=== PATIENT | female | born 1985 | race Caucasian/White ===

== ENCOUNTER 2016-03-24 02:39 | Inpatient (IN) | payer OTHER ==
[2016-03-24] VITALS (17 sets, daily range): BP systolic 119–138; BP diastolic 57–86
[~2016-03-24] VITALS: Ht 170.2 cm; Wt 79.0 kg
[~2016-03-24 02:39] MED LIST: ACET50TA PO; IBUP80TA PO
[2016-03-24] MEDS ORDERED: LACTATED RINGER'S 1000 ML IV STA (03:21)
[2016-03-24] MEDS ORDERED: LR 1,000 ML IV SCH (03:21)
[2016-03-24] MEDS ORDERED: CLINDAMYCIN 900 MG in APPROPRIATE DILUENT 1 EA IV SCH (03:30)
[2016-03-24 03:44] LABS: MEAN CORPUSCULAR HEMOGLOBIN 33.3 pg (27.0-33.0); MEAN CORPUSCULAR HGB CONC 35.3 g/dl (32.0-36.5); MEAN CORPUSCULAR VOLUME 94.1 fl (80.0-96.0); RED CELL DISTRIBUTION WIDTH 13.9 % (11.5-14.5); WHITE BLOOD COUNT 11.4 K/mm3 (4.0-10.0)
[2016-03-24] MEDS ORDERED: FENTANYL 2MCG/ML ROPIVACAINE 0.2% NACL 250 ML CADD As Ordered ONE (04:42)
[2016-03-24] MEDS ORDERED: EPIDURAL/PCA KEYS XX PRN (05:25)
[2016-03-24] MEDS ORDERED: EPIDURAL COMMENT XX SCH (05:25)
[2016-03-24] MEDS ORDERED: LACTATED RINGER'S 1000 ML IV PRN (05:25)
[2016-03-24] MEDS ORDERED: REFRIGERATOR IV KEYS XX PRN (05:25)
[2016-03-24] MEDS ORDERED: ePHEDrine SULFATE 25 MG/5 ML(5MG/ML) SYRINGE IV PRN (05:25)
[2016-03-24] MEDS ORDERED: ONDANSETRON 4MG/2ML VIAL (J2405) IV PRN (05:25)
[2016-03-24] MEDS ORDERED: FENTANYL/ROPIVACAINE/NACL CADD 250 ML EPIDURAL SCH (05:25)
[2016-03-24] MEDS ORDERED: NALOXONE INJ 0.4 MG/1 ML VIAL (J2310) IV PRN (05:25)
[2016-03-24] MEDS ORDERED: diphenhydrAMINE INJ 50MG/ML VIAL (J1200) IV PRN (05:25)
[2016-03-24] MEDS ORDERED: OXYTOCIN 30 UNITS IN 0.9% NaCl 500ML IV BAG (J2590) As Ordered ONE (06:06)
[2016-03-24] MEDS ORDERED: OXYTOCIN DRIP 30 UNITS in APPROPRIATE DILUENT 1 EA IV SCH (06:42)
[2016-03-24] MEDS ORDERED: METHYLERGONOVINE MALEATE 0.2 MG TAB PO PRN (06:45)
[2016-03-24] MEDS ORDERED: miSOPROStol 200 MCG TAB (S0191) PR ONE (06:45)
[2016-03-24] MEDS ORDERED: MOM 30ML SUSPENSION UDC PO PRN (06:45)
[2016-03-24] MEDS ORDERED: DIBUCAINE 1% OINTMENT 30GM TOP PRN (06:45)
[2016-03-24] MEDS ORDERED: DOCUSATE SODIUM 100 MG CAP PO PRN (06:45)
[2016-03-24] MEDS ORDERED: RHOGAM 300 MCG (1500 IU) INJ (J2790) IM SCH (06:45)
[2016-03-24] MEDS ORDERED: MEASLES,MUMPS,RUBELLA VACCINE INJ (MMR-II) (90707) SC SCH (06:45)
--- NOTE | 2016-03-24 07:58 | HPE ---
DATE OF ADMISSION: 03/24/2016 HISTORY: 30-year-old, 2, para 1-0-0-1, estimated date of delivery 03/22/2016, here at 40 weeks 2 days with reports of spontaneous rupture of membranes, clear fluid, at 0115, followed by onset of mild contractions. Denies bleeding. Fetus is active. Last normal menstrual period 06/16/2015 for expected date of delivery (KEYANA) of 03/22/2016. Sonogram at 8 weeks confirmed date of 03/26/2016. Sought first trimester care. Anatomy scan within normal limits. Appropriate care. OBSTETRICAL HISTORY: In 2012, normal spontaneous vaginal at 38 weeks, viable female, 7 pounds 15 ounces, with a 9 hour labor. ALLERGIES: - LATEX - PENICILLIN MEDICAL/SURGICAL: LASIK. Abnormal Pap, colposcopy and heart murmur. FAMILY HISTORY: Heart disease. SOCIAL HISTORY: . Father of the baby present and supportive. Denies tobacco, alcohol, drugs or abuse. OBJECTIVE: Prepregnancy weight 142, total weight gain 42 pounds. A positive, antibody negative, rubella immune. VDRL, hepatitis B, hepatitis C, HIV, gonorrhea, and chlamydia all negative. Declined genetic screening. 1-hour glucose 119. Group B strep is positive. Sensitivities performed showing clindamycin sensitivity. Vital signs are stable. She is in no apparent distress. Heart rate is regular. Respirations are easy. Abdomen is soft, gravid, longitudinal lie. Uterine contractions 7-8 minutes apart times 60+ seconds. heart 145, moderate variability with accelerations. Clear fluid draining per vagina. Sterile vaginal exam per nursin cm, 60% effaced, -2 station. ASSESSMENT: Multiparous at term. Premature rupture of membranes. Early labor. Category I tracing. PLAN: Admit. The patient plans epidural. Group B Strep prophylaxis ordered. Anticipate normal spontaneous vaginal .
--- NOTE | 2016-03-24 08:27 | DN ---
DATE: 03/24/2016 Spontaneous rupture of membranes, clear fluid, 0115. Onset of regular contractions thereafter. Utilized epidural for coping. Fully dilated 0605 with strong urge to push. Viable female delivered right occiput anterior (FABI) after reduction of loose nuchal cord at 0616. Spontaneous respirations with stimulation. Transitioned on maternal abdomen. Cord doubly clamped and cut. Infant to warmer for suctioning and blow-by Oxygen. Apgars 8 and 9. Placenta Caballero intact with three-vessel cord at 0624. Fundus firmed with massage and IV Pitocin bolus. Misoprostol 1000 mcg WA given for persistent bleeding with good effect. Estimated blood loss 400 mL. Perineum, vagina and cervix inspected. Right labial abrasion and small posterior abrasion reapproximated with interrupted suture of #3-0 Vicryl Rapide. Sharp, sponge and instrument count correct. Infant weight 8 pounds 6 ounces, 3792 grams. Mom and baby doing well.
[2016-03-24] MEDS: PRENATAL VITAMIN TAB PO SCH (09:09)
[2016-03-24] MEDS: IBUPROFEN 800 MG TAB PO PRN ×2 (13:13→17:16)
[2016-03-24] MEDS: ACETAMINOPHEN 500 MG TAB PO PRN (21:15)
[2016-03-25 06:08] VITALS: BP 132/68
[2016-03-25] MEDS: PRENATAL VITAMIN TAB PO SCH (09:11)
[2016-03-25] MEDS: IBUPROFEN 800 MG TAB PO PRN ×2 (09:27→22:27)
[2016-03-25 10:00] VITALS: BP_SYST 128; BP_SYST 131; BP_DIAS 72; BP_DIAS 78
[2016-03-25 14:00] VITALS: BP 122/72
[2016-03-25 18:00] VITALS: BP 128/79
[2016-03-26 05:56] VITALS: BP 105/64
[2016-03-26] MEDS: ACETAMINOPHEN 500 MG TAB PO PRN (08:25)
[2016-03-26] MEDS: PRENATAL VITAMIN TAB PO SCH (08:25)
== END 2016-03-26 11:30 | disposition home or self-care (01) | DRG 775 ==
LOC: M LDO 02:39 → M LDI 03:18 → M OBS 08:32
PROVIDERS: ADMIT Advanced Practice Midwife; ATTEND Advanced Practice Midwife
PROC: 10E0XZZ Delivery of Products of Conception, External Approach (ICD-10-PCS; principal; 2016-03-24)
DX: O42.02 Full-term premature rupture of membranes, onset of labor within 24 hours of rupture (principal); O99.824 Streptococcus B carrier state complicating childbirth; Z3A.40 40 weeks gestation of pregnancy; O69.81X0 Labor and delivery complicated by cord around neck, without compression, not applicable or unspecified; Z37.0 Single live birth

== ENCOUNTER 2016-04-05 12:12 | Emergency (ER) | payer OTHER ==
--- NOTE | 2016-04-05 14:13 | EDDOCDS ---
Physician Documentation [facility] Name: Reena Griffin Age: 30 yrs Sex: Female : 1985 Arrival Date: 04/05/2016 Time: 12:12 Bed 9 Private MD: VÍCTOR MATSON Disposition: 04/05/16 13:30 Discharged to Home/Self Care. Impression: Nonpurulent mastitis associated with . - Condition is Stable. - Discharge Instructions: Challenges and Solutions, and Mastitis. - Prescriptions for cefadroxil 500 mg Oral capsule - take 1 capsule by ORAL route 2 times per day; 20 capsule. Ibuprofen 800 mg Oral Tablet - take 1 tablet by ORAL route every 8 hours As needed take with food; 30 tablet. - Medication Reconciliation, Local Pharmacy Hours form. - Follow up: VÍCTOR MATSON; When: 1 - 2 days; Reason: Recheck today's complaints. - Problem is new. - Symptoms are unchanged. Historical: - Allergies: PENICILLINS; Latex; - Home Meds: 1. Zyrtec 10 mg Oral tab 1 tab once daily 2. plus daily 3. Vitamin C 1,000 mg oral chew daily 4. Motrin 800 mg Oral tab (Last dose: 04/05/2016 10:00) - PMHx: Heart Murmur; - PSHx: none; - Social history: Smoking status: Patient states was never smoker of tobacco. No barriers to communication noted, The patient speaks fluent Portuguese, Speaks appropriately for age. - Family history: Not pertinent. - : The pt / caregiver states he / she is not on anticoagulants. Home medication list is obtained from the patient. - Exposure Risk Screening:: None identified. 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 7 in. (170.18 cm) (R); Pain 4/10; 14:04 BP 128 / 81; Pulse 79; Resp 18; Temp 98.9; Pulse Ox 99% on R/A; Pain 4/10; pml 12:14 Body Mass Index 25.40 (73.57 kg, 170.18 cm) gr2 MDM: 13:43 Financial registration complete. lg 13:52 [facility] Payment Agreement was scanned into [employer] and attached to record. lg Signatures: Lilly Swift MD MD sd1 Velma Regalado, RN RN srm Reggie Bowers, Reg Reg lg Mya Crow RN RN pml The chart was reviewed and I authenticate all verbal orders and agree with the evaluation and treatment provided.Attachments: 13:52 [facility] Payment Agreement lg MTDD
--- NOTE | 2016-04-05 14:13 | EDDOCDS ---
Nurse's Notes [facility] Name: Reena Griffin Age: 30 yrs Sex: Female : 1985 Arrival Date: 04/05/2016 Time: 12:12 Bed 9 Private MD: VÍCTOR MATSON Diagnosis: Nonpurulent mastitis associated with Presentation: 04/05 12:32 Presenting complaint: Patient states: i have infection in left breast- symptoms of red srm sore swollen temp 101.9 this am.chills bodyache this am. Adult Sepsis Screening: The patient does not have new or worsening altered mentation. Patient's respiratory rate is less than 22. Systolic blood pressure is greater than 100. Patient has a qSOFA score of 0- Negative Sepsis Screen. Suicide/Homicide risk assessment- the patient denies having any suicidal and/or homicidal ideations and does not present with any other emotional, behavioral or mental health complaints. Status: The patient is a dependent. Transition of care: patient was not received from another setting of care. 12:32 Acuity: FREDDIE Level 3 [facility] 12:32 Method Of Arrival: Walkin/Carried/Asstd [facility] Triage Assessment: 12:34 General: Appears in no apparent distress, Behavior is appropriate for age, cooperative. [facility] Pain: Pain currently is 4 out of 10 on a pain scale. 12:35 HIV screening NA for this visit Offered previously. 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 Zyrtec 10 mg Oral tab 1 tab once daily 2. plus daily 3. Vitamin C 1,000 mg oral chew daily 4. Motrin 800 mg Oral tab (Last dose: 04/05/2016 10:00) - PMHx: Heart Murmur; - PSHx: none; - Social history: Smoking status: Patient states was never smoker of tobacco. No barriers to communication noted, The patient speaks fluent Romanian, Speaks appropriately for age. - Family history: Not pertinent. - : The pt / caregiver states he / she is not on anticoagulants. Home medication list is obtained from the patient. - Exposure Risk Screening:: None identified. Screenin:04 Screening information is obtained from the patient. Fall risk: No risks identified. pml Assistance ADL's: requires no assistance with activities of daily living. Abuse/DV Screen: The patient / caregiver reports he/she is: not in a situation that causes fear, pain or injury. Nutritional screening: No deficits noted. Advance Directives: Currently, there is no health care proxy. home support is adequate. Assessment: 14:04 General: Appears in no apparent distress, comfortable, Behavior is appropriate for age, pml cooperative. Pain: Location: left breast. Neurological: Level of Consciousness is awake, alert, Oriented to person, place, time. Cardiovascular: Capillary refill < 3 seconds. Respiratory: Airway is patent Respiratory effort is even, unlabored. GI: Abdomen is non- distended. Derm: Skin is red, to left breast at medial margin. Vital Signs: 12:14 BP 143 / 89; Pulse 120; Resp 18 S; Temp 100.2(O); Pulse Ox 95% on R/A; Weight 73.57 kg gr2 (M); Height 5 ft. 7 in. (170.18 cm) (R); Pain 4/10; 14:04 BP 128 / 81; Pulse 79; Resp 18; Temp 98.9; Pulse Ox 99% on R/A; Pain 4/10; pml 12:14 Body Mass Index 25.40 (73.57 kg, 170.18 cm) gr2 Vitals: 12:14 Log In Time: April 05, 2016 at 12:14. gr2 ED Course: 12:14 Patient visited by Taylor Soares. gr2 12:14 VÍCTOR MATSON is Private Physician. gr2 12:14 Patient moved to Waiting gr2 12:17 Patient visited by Taylor Soares. gr2 12:17 Patient moved to Pre RCE gr2 12:33 Triage Initiated srm 13:14 Mya Crow,RN is Primary Nurse. srm 13:14 Patient moved to 9 srm 13:17 Lilly Swift MD is Attending Physician. sd1 13:17 Patient visited by Lilly Swift MD. sd1 13:30 VÍCTOR MATSON is Referral Physician. sd1 13:50 Patient name changed from Reena\S\\S\Kurunczi\S\ to Reena\S\Nereida\S\Kurunczi. EDMS 13:52 [facility] Payment Agreement was scanned into [employer] and attached to record. lg 14:04 The patient / caregiver is instructed regarding the plan of care and ED course. Patient pml has correct armband on for positive identification. Bed in low position. Call light in reach. 14:04 No IV's were initiated during this patient's visit. No procedures done that require pml assistance. Order Results: There are currently no results for this order. Outcome: 13:30 Discharge ordered by Provider. sd1 14:04 Discharge Assessment: Patient awake, alert and oriented x 3. No cognitive and/or pml functional deficits noted. Patient verbalized understanding of disposition instructions. patient administered narcotics - no. The following High Risk Discharge criteria are identified: None. Discharged to home ambulatory. Condition: good Condition: stable. Discharge instructions given to patient, Instructed on discharge instructions, follow up and referral plans. medication usage, Use of warm compresses to the affected area, Demonstrated understanding of instructions, medications, Pt was receptive of discharge instructions/ teaching. Prescriptions given X 2. No special radiology studies were completed. Property sent home with patient. 14:12 Patient left the ED. pml Signatures: Dispatcher [employer] EDMS Lilly Swift MD MD sd1 Velma Regalado, RN RN srm Reggie Bowers, Reg Reg lg Mya Crow,RN RN [place] gr2 MTDD
--- NOTE | 2016-04-07 15:13 | EDDOCDS ---
Nurse's Notes [facility] Name: Reena Griffin Age: 30 yrs Sex: Female : 1985 Arrival Date: 04/05/2016 Time: 12:12 Bed 9 Private MD: VÍCTOR MATSON Diagnosis: Nonpurulent mastitis associated with Presentation: 04/05 12:32 Presenting complaint: Patient states: i have infection in left breast- symptoms of red srm sore swollen temp 101.9 this am.chills bodyache this am. Adult Sepsis Screening: The patient does not have new or worsening altered mentation. Patient's respiratory rate is less than 22. Systolic blood pressure is greater than 100. Patient has a qSOFA score of 0- Negative Sepsis Screen. Suicide/Homicide risk assessment- the patient denies having any suicidal and/or homicidal ideations and does not present with any other emotional, behavioral or mental health complaints. Status: The patient is a dependent. Transition of care: patient was not received from another setting of care. 12:32 Acuity: FREDDIE Level 3 [facility] 12:32 Method Of Arrival: Walkin/Carried/Asstd [facility] Triage Assessment: 12:34 General: Appears in no apparent distress, Behavior is appropriate for age, cooperative. [facility] Pain: Pain currently is 4 out of 10 on a pain scale. 12:35 HIV screening NA for this visit Offered previously. 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 Zyrtec 10 mg Oral tab 1 tab once daily 2. plus daily 3. Vitamin C 1,000 mg oral chew daily 4. Motrin 800 mg Oral tab (Last dose: 04/05/2016 10:00) - PMHx: Heart Murmur; - PSHx: none; - Social history: Smoking status: Patient states was never smoker of tobacco. No barriers to communication noted, The patient speaks fluent Polish, Speaks appropriately for age. - Family history: Not pertinent. - : The pt / caregiver states he / she is not on anticoagulants. Home medication list is obtained from the patient. - Exposure Risk Screening:: None identified. Screenin:04 Screening information is obtained from the patient. Fall risk: No risks identified. pml Assistance ADL's: requires no assistance with activities of daily living. Abuse/DV Screen: The patient / caregiver reports he/she is: not in a situation that causes fear, pain or injury. Nutritional screening: No deficits noted. Advance Directives: Currently, there is no health care proxy. home support is adequate. Assessment: 14:04 General: Appears in no apparent distress, comfortable, Behavior is appropriate for age, pml cooperative. Pain: Location: left breast. Neurological: Level of Consciousness is awake, alert, Oriented to person, place, time. Cardiovascular: Capillary refill < 3 seconds. Respiratory: Airway is patent Respiratory effort is even, unlabored. GI: Abdomen is non- distended. Derm: Skin is red, to left breast at medial margin. Vital Signs: 12:14 BP 143 / 89; Pulse 120; Resp 18 S; Temp 100.2(O); Pulse Ox 95% on R/A; Weight 73.57 kg gr2 (M); Height 5 ft. 7 in. (170.18 cm) (R); Pain 4/10; 14:04 BP 128 / 81; Pulse 79; Resp 18; Temp 98.9; Pulse Ox 99% on R/A; Pain 4/10; pml 12:14 Body Mass Index 25.40 (73.57 kg, 170.18 cm) gr2 Vitals: 12:14 Log In Time: April 05, 2016 at 12:14. gr2 ED Course: 12:14 Patient visited by Taylor Soares. gr2 12:14 VÍCTOR MATSON is Private Physician. gr2 12:14 Patient moved to Waiting gr2 12:17 Patient visited by Taylor Soares. gr2 12:17 Patient moved to Pre RCE gr2 12:33 Triage Initiated srm 13:14 Mya Crow,RN is Primary Nurse. srm 13:14 Patient moved to 9 srm 13:17 Lilly Swift MD is Attending Physician. sd1 13:17 Patient visited by Lilly Swift MD. sd1 13:30 VÍCTOR MATSON is Referral Physician. sd1 13:50 Patient name changed from Reena\S\\S\Kurunczi\S\ to Reena\S\Nereida\S\Kurunczi. EDMS 13:52 [facility] Payment Agreement was scanned into [employer] and attached to record. lg 14:04 The patient / caregiver is instructed regarding the plan of care and ED course. Patient pml has correct armband on for positive identification. Bed in low position. Call light in reach. 14:04 No IV's were initiated during this patient's visit. No procedures done that require pml assistance. 15:56 T-Sheet-- Draft Copy was scanned into [employer] and attached to record. gb Order Results: There are currently no results for this order. Outcome: 13:30 Discharge ordered by Provider. sd1 14:04 Discharge Assessment: Patient awake, alert and oriented x 3. No cognitive and/or pml functional deficits noted. Patient verbalized understanding of disposition instructions. patient administered narcotics - no. The following High Risk Discharge criteria are identified: None. Discharged to home ambulatory. Condition: good Condition: stable. Discharge instructions given to patient, Instructed on discharge instructions, follow up and referral plans. medication usage, Use of warm compresses to the affected area, Demonstrated understanding of instructions, medications, Pt was receptive of discharge instructions/ teaching. Prescriptions given X 2. No special radiology studies were completed. Property sent home with patient. 14:12 Patient left the ED. pml Signatures: Dispatcher [employer] EDMS Lilly Swift MD MD sd1 Velma Regalado, RN RN [facility] Brinda Potter, Reg Reg gb Reggie Bowers, Reg Reg lg Mya Crow,ANKUSH RN Taylor N[place] gr2 Chart Complete MTDD
--- NOTE | 2016-04-07 15:13 | EDDOCDS ---
Physician Documentation [facility] Name: Reena Griffin Age: 30 yrs Sex: Female : 1985 Arrival Date: 04/05/2016 Time: 12:12 Bed 9 Private MD: VÍCTOR MATSON Disposition: 04/05/16 13:30 Discharged to Home/Self Care. Impression: Nonpurulent mastitis associated with . - Condition is Stable. - Discharge Instructions: Challenges and Solutions, and Mastitis. - Prescriptions for cefadroxil 500 mg Oral capsule - take 1 capsule by ORAL route 2 times per day; 20 capsule. Ibuprofen 800 mg Oral Tablet - take 1 tablet by ORAL route every 8 hours As needed take with food; 30 tablet. - Medication Reconciliation, Local Pharmacy Hours form. - Follow up: VÍCTRO MATSON; When: 1 - 2 days; Reason: Recheck today's complaints. - Problem is new. - Symptoms are unchanged. Historical: - Allergies: PENICILLINS; Latex; - Home Meds: 1. Zyrtec 10 mg Oral tab 1 tab once daily 2. plus daily 3. Vitamin C 1,000 mg oral chew daily 4. Motrin 800 mg Oral tab (Last dose: 04/05/2016 10:00) - PMHx: Heart Murmur; - PSHx: none; - Social history: Smoking status: Patient states was never smoker of tobacco. No barriers to communication noted, The patient speaks fluent Sami, Speaks appropriately for age. - Family history: Not pertinent. - : The pt / caregiver states he / she is not on anticoagulants. Home medication list is obtained from the patient. - Exposure Risk Screening:: None identified. 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 7 in. (170.18 cm) (R); Pain 4/10; 14:04 BP 128 / 81; Pulse 79; Resp 18; Temp 98.9; Pulse Ox 99% on R/A; Pain 4/10; pml 12:14 Body Mass Index 25.40 (73.57 kg, 170.18 cm) gr2 MDM: 13:43 Financial registration complete. lg 13:52 [facility] Payment Agreement was scanned into [employer] and attached to record. lg 15:56 T-Sheet-- Draft Copy was scanned into [employer] and attached to record. gb Signatures: Lilly Swift MD MD sd1 Velma Regalado, ANKUSH RN [facility] Brinda Potter, Reg Reg gb Reggie Bowers, Reg Reg Mya Crow RN RN pml The chart was reviewed and I authenticate all verbal orders and agree with the evaluation and treatment provided.Attachments: 13:52 [facility] Payment Agreement lg 15:56 T-Sheet-- Draft Copy gb Chart Complete MTDD
--- NOTE | 2016-04-07 15:13 | EDDOCDS ---
Physician Documentation [facility] Name: Reena Griffin Age: 30 yrs Sex: Female : 1985 Arrival Date: 04/05/2016 Time: 12:12 Bed 9 Private MD: VÍCTOR MATSON Disposition: 04/05/16 13:30 Discharged to Home/Self Care. Impression: Nonpurulent mastitis associated with . - Condition is Stable. - Discharge Instructions: Challenges and Solutions, and Mastitis. - Prescriptions for cefadroxil 500 mg Oral capsule - take 1 capsule by ORAL route 2 times per day; 20 capsule. Ibuprofen 800 mg Oral Tablet - take 1 tablet by ORAL route every 8 hours As needed take with food; 30 tablet. - Medication Reconciliation, Local Pharmacy Hours form. - Follow up: VÍCTOR MATSON; When: 1 - 2 days; Reason: Recheck today's complaints. - Problem is new. - Symptoms are unchanged. Historical: - Allergies: PENICILLINS; Latex; - Home Meds: 1. Zyrtec 10 mg Oral tab 1 tab once daily 2. plus daily 3. Vitamin C 1,000 mg oral chew daily 4. Motrin 800 mg Oral tab (Last dose: 04/05/2016 10:00) - PMHx: Heart Murmur; - PSHx: none; - Social history: Smoking status: Patient states was never smoker of tobacco. No barriers to communication noted, The patient speaks fluent Sinhala, Speaks appropriately for age. - Family history: Not pertinent. - : The pt / caregiver states he / she is not on anticoagulants. Home medication list is obtained from the patient. - Exposure Risk Screening:: None identified. 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 7 in. (170.18 cm) (R); Pain 4/10; 14:04 BP 128 / 81; Pulse 79; Resp 18; Temp 98.9; Pulse Ox 99% on R/A; Pain 4/10; pml 12:14 Body Mass Index 25.40 (73.57 kg, 170.18 cm) gr2 MDM: 13:43 Financial registration complete. lg 13:52 [facility] Payment Agreement was scanned into [employer] and attached to record. lg 15:56 T-Sheet-- Draft Copy was scanned into [employer] and attached to record. gb Signatures: Lilly Swift MD MD sd1 Velma Regalado, ANKUSH RN [facility] Brinda Potter, Reg Reg gb Reggie Bowers, Reg Reg Mya Crow RN RN pml The chart was reviewed and I authenticate all verbal orders and agree with the evaluation and treatment provided.Attachments: 13:52 [facility] INCLUDES THE [facility] Payment Agreement lg 15:56 T-Sheet-- Draft Copy gb Chart Complete MTDD
== END 2016-04-05 14:12 | disposition home or self-care (01) ==
LOC: M ED 12:12
DX: O91.23 Nonpurulent mastitis associated with lactation (principal); Z79.899 Other long term (current) drug therapy; Z88.0 Allergy status to penicillin; Z91.040 Latex allergy status

== ENCOUNTER → 2017-02-10 | Outpatient (CLI) | payer OTHER | LOC: M SMT 13:42 | PROVIDERS: ATTEND Advanced Practice Midwife | DX: Z11.3 Encounter for screening for infections with a predominantly sexual mode of transmission (principal) ==

== ENCOUNTER → 2017-09-10 | Outpatient (CLI) | payer OTHER | LOC: M RAD 16:08 | DX: M54.5 Low back pain (principal) | CPT/HCPCS: 72114 ==

== ENCOUNTER 2017-09-22 14:19 | Outpatient (RCR) | payer OTHER | END 2017-09-28 | disposition home or self-care (01) | LOC: M PT 14:19 | DX: Z51.89 Encounter for other specified aftercare (principal); M54.5 Low back pain | CPT/HCPCS: 97010 ==

== ENCOUNTER → 2017-09-30 | Outpatient (CLI) | payer OTHER | LOC: M RAD 17:07 | DX: R10.2 Pelvic and perineal pain (principal) | CPT/HCPCS: 76856 ==

== ENCOUNTER 2017-10-04 13:08 | Outpatient (RCR) | payer OTHER | END 2017-10-29 | LOC: M PT 13:08 | DX: Z51.89 Encounter for other specified aftercare (principal); M54.5 Low back pain | CPT/HCPCS: 97010 ==

== ENCOUNTER → 2017-12-03 | Outpatient (REF) | payer OTHER | LOC: M SFHCPLAZ 15:32 | DX: R35.0 Frequency of micturition (principal); L60.8 Other nail disorders ==

== ENCOUNTER → 2017-12-14 | Outpatient (REF) | payer OTHER | LOC: M SFHCPLAZ 12:20 | DX: D23.5 Other benign neoplasm of skin of trunk (principal) ==